=== PATIENT | female | born 1975 | race Caucasian/White ===

== ENCOUNTER 2024-10-22 18:41 | Emergency (ER) | payer OTHER, SELFPAY ==
--- OUTSIDE RECORDS SUMMARY | 2024-10-22 19:04 | XMS_ITS | Clinical Summary ---
Author Organization [facility] Address [address] [place] [address] Care Team Providers Care Bakery Helper Name Role Phone Unavailable Primary Care Provider Unavailabl e Social History Tobacco Use Types Packs/Day Years Used Date Smoking Tobacco: Never Assessed Comments Unknown Sex and Gender Information Value Date Recorded Sex Assigned at Not on file Legal Sex Female 11:39 AM EDT Gender Identity Not on file Sexual Orientation Not on file Plan of Treatment Health Maintenance Due Date Last Done Comments COLOGUARD 1976 COLONOSCOPY 1976 Colorectal Screening Combination 1976 FIT 1976 HEP C SCREENING 1976 SIGMOIDOSCOPY 1976 ANNUAL WELLNESS EXAM 11/21/1979 DTAP/TDAP/TD VACCINE (1 - Tdap) 11/21/1995 PAP SMEAR EVERY 3 YR (Cervic al Cancer Screen) 05/03/2021 05/03/2018 INFLUENZA VACCINE (#1) 2024 HEP A VACCINE Aged Out No longer elig ible based on patient's age to complete this topic HIB VACCINE Aged Out No longer eligi ble based on patient's age to complete this topic ROTOVIRUS VACCINE Aged Out No longer eligible based on patient's age to complete this topic Procedures Procedure Name Priority Date/Time Associated Diagnosis Comments WATER POLLUTION CONTROL INSPECTOR CASES Routine 05/03/2018 8:54 AM EDT Routine cervical smear from Last 3 Months or Most Recently Relevant to Health Maintenance Results * Insurance Claims Supervisor Cases (05/03/2018 8:54 AM EDT) WATER POLLUTION CONTROL INSPECTOR CASES SEE BELOW [facility] Comment: [place] [id number] Department of Cytology LAURE CHARLES [id number] SPECIMEN SUBMITTED: CERVICAL VAGINAL THIN PREP - IMAGED RELEVANT LMP....None HISTORY: Provided SPECIMEN ADEQUACY SATISFACTORY FOR EVALUATION ENDOCERVICAL/TRANSFORMATION ZONE COMPONENT PRESENT GENERAL CATEGORIZATION NEGATIVE FOR INTRAEPITHELIAL LESIONS OR MALIGNANCY INTERPRETATION REACTIVE CELLULAR CHANGES ASSOCIATED WITH INFLAMMATION COMMENTS FURTHER FOLLOW-UP CLINICALLY INDICATED NOTES Specimen successfully analyzed by ThinPrep Imaging System (Manufactured by [employer], [place], [place]) Following automated imaging, selected nolasco were reviewed by a line up examiner and required physician interpretation Construction Sales Representative(s) <Sign Out Dr. Chris> STELLA CRUZ, (CT, FABIANA GARCIA M.D., Pathologist ASCP) Page 1 of 1 Cervical/Vaginal ThinPrep (Cervix) 05/03/2018 8:54 AM EDT 05/04/2018 1:35 PM EDT Be Pierce MD PATHOLOGY/CYTOLOGY ORDERAB LES Final Result Performing Organization Address City/State/[facility] Co de Phone Number [facility] [address] [place] [address] from Last 3 Months or Most Recently Relevant to Health Maintenance Insurance [facility]
--- OUTSIDE RECORDS SUMMARY | 2024-10-22 19:05 | XMS_ITS | Encounter Summary ---
Author Organization [facility] Address [address] [place] [address] Care Team Providers Care Department Secretary Name Role Phone Unavailable Primary Care Provider Unavailabl e Encounter Details Date Type Department Care Team (Latest Contact Info) Description 05/03/2018 Transcribe Orders [facility] Be Pierce MD [address] [place] [address] [address] [place] [address] DUB (dysfunctional uterine bleeding) (Primary Dx) Social History Tobacco Use Types Packs/Day Years Used Date Smoking Tobacco: Never Assessed Comments Unknown Sex and Gender Information Value Date Recorded Sex Assigned at Not on file Legal Sex Female 11:39 AM EDT Gender Identity Not on file Sexual Orientation Not on file documented as of this encounter Plan of Treatment Scheduled Orders Name Type Priority Associated Diagnoses Orde r Schedule Venipuncture Lab Today DUB (dysfunctional uterine bleeding) 1 Occurrences starting 05/03/2018 until 05/03/2019 documented as of this encounter Results * (ABNORMAL) CBC (05/03/2018 10:37 AM EDT) WBC 12.8(H) 4.5 - 11.0 10*3/uL 05/03/2018 3:05 PM EDT [facility] RBC 4.41 4.00 - 5.20 10*6/uL 05/03/2018 3:05 PM EDT [facility] HGB 13.0 12.0 - 16.0 g/dL 05/03/2018 3:05 PM EDT [facility] HCT 39.4 33.0 - 51.0 % 05/03/2018 3:05 PM EDT [facility] MCV 89.3 80.0 - 100.0 fL 05/03/2018 3:05 PM EDT [facility] MCHC 32.9 32.0 - 36.0 g/dL 05/03/2018 3:05 PM EDT [facility] MCH 29.4 26.0 - 34.0 pg 05/03/2018 3:05 PM EDT [facility] RDW 13.4(H) 11.5 - 13.1 % 05/03/2018 3:05 PM EDT [facility] MPV 8.2 6.5 - 10.0 fL 05/03/2018 3:05 PM EDT [facility] Platelet Cnt 399 150 - 450 10*3/uL 05/03/2018 3:05 PM EDT [facility] Differential Type Auto 019 3:05 PM EDT [facility] Neutrophils 52.4 35.0 - 66.0 % 05/03/2018 3:05 PM EDT [facility] Lymphocytes 32.0 24.0 - 44.0 % 05/03/2018 3:05 PM EDT [facility] Monocytes 10.4 2.1 - 13.3 % 05/03/2018 3:05 PM EDT [facility] Eosinophils 4.3 0.3 - 5.0 % 05/03/2018 3:05 PM EDT [facility] Basophils 0.9 0.0 - 1.0 % 05/03/2018 3:05 PM EDT [facility] Neutrophils Abs 6.7 1.6 - 8.5 10*3/uL 05/03/2018 3:05 PM EDT [facility] Lymphocytes Abs 4.1 1.1 - 5.0 10*3/uL 05/03/2018 3:05 PM EDT [facility] Monocytes Abs 1.3 0.0 - 1.4 10*3/uL 05/03/2018 3:05 PM EDT [facility] Eosinophils Abs 0.6(H) 0.0 - 0.5 10*3/uL 05/03/2018 3:05 PM EDT [facility] Basophils Abs 0.1 0.0 - 0.1 10*3/uL 05/03/2018 3:05 PM EDT [facility] 05/03/2018 10:3 7 AM EDT 05/03/2018 2:18 PM EDT Be Pierce MD HEMATOLOGY ORDERABLES Gaby l Result Performing Organization Address [facility] de Phone Number [facility] [address] [place], [place] [id number] [place] [address] LAB [address] [place] [address] * TSH, High Sensitivity (05/03/2018 10:37 AM EDT) TSH 3.87 0.30 - 5.60 u[iU]/mL 05/03/2018 4:00 PM EDT [facility] 05/03/2018 10:3 7 AM EDT 05/03/2018 2:18 PM EDT Be Pierce MD CHEMISTRY ORDERABLES Final Result Performing Organization Address [facility] de Phone Number [facility] [address] [place] [address] [facility] [address] [place] [address] documented in this encounter Visit Diagnoses Diagnosis DUB (dysfunctional uterine bleeding)- Primary Other disorder of menstruation and other abnormal bleeding from female genital tract documented in this encounter
--- OUTSIDE RECORDS SUMMARY | 2024-10-22 19:05 | XMS_ITS | Encounter Summary ---
Author Organization [facility] Address [address] [place] [address] Care Team Providers Care Technology Integration Specialist Name Role Phone Unavailable Primary Care Provider Unavailabl e Encounter Details Date Type Department Care Team (Latest Contact Info) Description 05/04/2018 Transcribe Orders [facility] Be Pierce MD [address] [place] [address] Routine cervical smear (Primary Dx) Social History Tobacco Use Types Packs/Day Years Used Date Smoking Tobacco: Never Assessed Comments Unknown Sex and Gender Information Value Date Recorded Sex Assigned at Not on file Legal Sex Female 11:39 AM EDT Gender Identity Not on file Sexual Orientation Not on file documented as of this encounter Plan of Treatment Not on file documented as of this encounter Results * Scrub Wheel Operator Cases (05/03/2018 8:54 AM EDT) MEDICAL SALES SPECIALIST CASES SEE BELOW [facility] Comment: [facility] [address] [place] [address] Department of Cytology LAURE CHARLES [id number] SPECIMEN SUBMITTED: CERVICAL VAGINAL THIN PREP - IMAGED RELEVANT LMP....None HISTORY: Provided SPECIMEN ADEQUACY SATISFACTORY FOR EVALUATION ENDOCERVICAL/TRANSFORMATION ZONE COMPONENT PRESENT GENERAL CATEGORIZATION NEGATIVE FOR INTRAEPITHELIAL LESIONS OR MALIGNANCY INTERPRETATION REACTIVE CELLULAR CHANGES ASSOCIATED WITH INFLAMMATION COMMENTS FURTHER FOLLOW-UP CLINICALLY INDICATED NOTES Specimen successfully analyzed by ThinPrep Imaging System (Manufactured by [employer], [place], [place]) Following automated imaging, selected nolasco were reviewed by a manager income tax and required physician interpretation Observation Assistant(s) <Sign Out Dr. Chris> STELLA CRUZ, (CT, FABIANA GARCIA M.D., Pathologist ASCP) Page 1 of 1 Cervical/Vaginal ThinPrep (Cervix) 05/03/2018 8:54 AM EDT 05/04/2018 1:35 PM EDT us Be Pierce MD PATHOLOGY/CYTOLOGY ORDERAB LES Final Result Performing Organization Address City/State/[facility] Co de Phone Number [facility] [address] [place] [address] documented in this encounter Visit Diagnoses Diagnosis Routine cervical smear- Primary Screening for malignant neoplasm of the cervix documented in this encounter
--- OUTSIDE RECORDS SUMMARY | 2024-10-22 19:05 | XMS_ITS | Clinical Summary ---
Author Organization [facility] Address [address] [place] [address] Care Team Providers Care Pnp Name Role Phone Unavailable Primary Care Provider Unavailabl e Social History Tobacco Use Types Packs/Day Years Used Date Smoking Tobacco: Never Assessed Abuse Screen Answer Date Recorded Unsafe at Home or Work/School Not on file Feels Threatened by Someone? Not on file 11/2022 Does Anyone Keep You from Co ntacting Others or Doint Things Outside the Home? Not on file 11/16/2022 Physical Sign of Abuse Present Not on file 1 Housing Stability Answer Date Recorded Current Living Arrangements Not on file 11/07 Potentially Unsafe Housing Conditions Not on malorie e 11/16/2022 Family and Community Support Answer Juan Francisco e Recorded Help with Day-to-Day Activities Not on file 11/16/2022 Lonely or Isolated Not on file 11/16/2022 Employment Answer Date Recorded Do you want help finding or keeping work or a diego b? Not on file 11/16/2022 Disabilities Answer Date Recorded Concentrating, Remembering, or Making Decisions Difficulty Not on file 11/16/2022 Doing Errands Independently Difficulty Not on fi le 11/16/2022 Education Answer Date Recorded Help with school or training? Not on file Preferred Language Not on file 11/16/2022 Comments Unknown Sex and Gender Information Value Date Recorded Sex Assigned at Not on file Legal Sex Female 1:41 PM EDT Gender Identity Not on file Sexual Orientation Not on file Last Filed Vital Signs Vital Sign Reading Time Taken Comments Blood Pressure 100/62 07/17/2013 2:26 PM EDT Pulse 64 07/17/2013 2:26 PM EDT Temperature - - Respiratory Rate 16 07/17/2013 2:26 PM EDT Oxygen Saturation - - Inhaled Oxygen Concentration - - Weight 83.9 kg (185 lb 0.2 oz) 07/17/2013 2:26 P M EDT Height 160 cm (5' 3 ) 07/17/2013 2:26 PM EDT Body Mass Index 32.77 07/17/2013 2:26 PM EDT Plan of Treatment Health Maintenance Due Date Last Done Comments ANNUAL PHYSICAL 1976 Annual Gynecologic Pelvic an d Breast Exam 1976 HEPATITIS C SCREENING 1976 TDAP/TD VACCINES (1 - Tdap) 11/21/1995 MAMMOGRAM 2016 COLOGUARD 2021 COLON CANCER SCREENING 5 YEA R SIGMOIDOSCOPY 2021 COLONOSCOPY 2021 COLORECTAL CANCER SCREENING 2021 CT COLONOGRAPHY 2021 FECAL OCCULT BLOOD TEST 2021 FIT Testing (1 year) 2021 COVID-19 Vaccine ( - 2023-2 5 season) 2024 INFLUENZA VACCINE 11/07/2024 Pneumococcal Vaccine 0-49 Aged Out No longer eligible based on patient's age to complete this topic
[2024-10-22 19:29] VITALS: BP 188/95; PULSE 71; RESP 18; TEMP 36.6; O2SAT 100; BMI 28.7
--- NOTE | 2024-10-22 20:13 | CT_ITS ---
PROCEDURE INFORMATION: Exam: CT Head Without Contrast Exam date and time: 10/22/2024 8:35 PM Age: 48 years old Clinical indication: Injury or trauma; Fall; Other: Pain; Additional info: Fall, head trauma, 2 days + loc TECHNIQUE: Imaging protocol: Computed tomography of the head without contrast. Radiation optimization: All CT scans at this facility use at least one of these dose optimization techniques: automated exposure control; mA and/or kV adjustment per patient size (includes targeted exams where dose is matched to clinical indication); or iterative reconstruction. COMPARISON: No relevant prior studies available. FINDINGS: Brain: Normal. No hemorrhage. Unremarkable white matter. No mass effect. Cerebral ventricles: No ventriculomegaly. Paranasal sinuses: Visualized sinuses are unremarkable. No fluid levels. Mastoid air cells: Visualized mastoid air cells are well aerated. Bones: Unremarkable. No acute fracture. Soft tissues: Unremarkable. IMPRESSION: No acute intracranial abnormality.
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
[2024-10-22 21:36] VITALS: BP 131/81; PULSE 48; RESP 15; TEMP 36.6; O2SAT 97
== END 2024-10-22 21:38 | disposition home or self-care (01) ==
PROVIDERS: Emergency Provider Student in an Organized Health Care Education/Training Program
DX: S06.0X0A Concussion without loss of consciousness, initial encounter (principal); F17.290 Nicotine dependence, other tobacco product, uncomplicated; W17.89XA Other fall from one level to another, initial encounter
CPT/HCPCS: 70450; 99283; 99284